=== PATIENT | male | born 1960 | race Caucasian/White ===

== ENCOUNTER 2016-11-23 13:08 | Day surgery (SDC) | payer OTHER ==
[~2016-11-23] VITALS: Ht 190.5 cm; Wt 108.4 kg
[2016-11-23 14:29] VITALS: Ht 190.5 cm; Wt 108.4 kg
[2016-11-23 14:52] VITALS: BP 132/83; PULSE 64; RESP 20
[2016-11-23] MEDS ORDERED: MIDAZOLAM 1 MG/ML 2 ML INJ ONE ×2 (15:34)
[2016-11-23] MEDS ORDERED: MEPERIDINE 50 MG INJ ONE (15:35)
[2016-11-23] MEDS ORDERED: FENTAnyl 50 MCG/ML VIAL ONE (15:35)
[2016-11-23 15:58] VITALS: BP 114/70; PULSE 48; RESP 11
--- NOTE | 2016-11-24 09:30 | GILP ---
DATE OF PROCEDURE: 11/23/2016 PREOPERATIVE DIAGNOSIS: Screening colonoscopy. INDICATIONS: The patient has elevated CEA. He also smokes. This may be another reason; however, t he patient underwent colonoscopy. POSTOPERATIVE DIAGNOSIS: Diverticulosis in the left colon and internal hemorrhoids grade II, otherw ise unremarkable. DESCRIPTION OF PROCEDURE: The patient was put in left lateral decubitus after obtaining informed co nsent. He was given totally 4 of Versed, 100 mcg of fentanyl, and Demerol 50. Rectal exam done, he morrhoids were noted with the scope and also by a digital exam. Advanced an Vigilos video colonosco pe all the way to cecum. It was somewhat poor prep in the cecum, but upon washing, lavaging extensi vely, I was able to see the appendix ileocecal valve very well and the cecum, ascending colon normal . Transverse colon, descending colon normal except in the descending colon and sigmoid colon, few d iverticula noted, and examination of the rectum including retroflexion demonstrated no evidence of a ny abnormality except internal hemorrhoids, grade II. After the procedure, the patient had no compl ication. He was advised to follow up with primary MD, stop smoking, repeat CEA after that, and stoo l for occult blood every year, and I will see him in 1 year if necessary. Dictated By: VERONICA MENA Conf#: [id number] DID#: [id number] CC: ;*EndCC*
== END 2016-11-23 16:29 | disposition home or self-care (01) ==
LOC: GIL 13:08
PROVIDERS: ATTEND Internal Medicine
DX: R97.0 Elevated carcinoembryonic antigen [CEA] (principal); K62.5 Hemorrhage of anus and rectum; K57.90 Diverticulosis of intestine, part unspecified, without perforation or abscess without bleeding; F17.210 Nicotine dependence, cigarettes, uncomplicated; K64.1 Second degree hemorrhoids; E78.5 Hyperlipidemia, unspecified
CPT/HCPCS: 45378; J2175; J2250; J3010; Z7610